=== PATIENT | male | born 1995 | race African-American/Black ===

== ENCOUNTER 2017-04-30 01:44 | Emergency (ER) | payer OTHER ==
[2017-04-30 02:37] VITALS: BP 132/72
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
[2017-04-30 03:36] LABS: ACETAMINOPHEN 0 ug/mL (10-30)
== END 2017-04-30 04:49 | disposition home or self-care (01) ==
LOC: JD.ED 01:44
DX: F12.90 Cannabis use, unspecified, uncomplicated (principal); F17.210 Nicotine dependence, cigarettes, uncomplicated; R45.851 Suicidal ideations
CPT/HCPCS: 36415; 80053; 80306; 85025; 99285; G0480; 99283